=== PATIENT | female | born 1945 | race Caucasian/White ===

== ENCOUNTER 2018-05-31 10:00 | Inpatient (IN) | payer OTHER, BC ==
[2018-05-27 12:33] LABS: BASOPHILS % (AUTO) 0.3 % (0.0-2.0); EOSINOPHILS # (AUTO) 0.3 K/uL (0.0-0.4); EOSINOPHILS % (AUTO) 3.2 % (0.0-4.0); HEMOGLOBIN 13.4 g/dL (12.0-16.0); LYMPHOCYTES # (AUTO) 3.3 K/uL (1.0-5.5); LYMPHOCYTES % (AUTO) 38.6 % (20.5-51.5); MEAN CORPUSCULAR HEMOGLOBIN 30 pg (27-31); MEAN CORPUSCULAR HGB CONC 34 % (32-36); MEAN CORPUSCULAR VOLUME 89 fL (79.0-98.0); MONOCYTES # (AUTO) 0.5 K/uL (0.0-1.0); MONOCYTES % (AUTO) 5.9 % (1.7-9.3); NEUTROPHILS # (AUTO) 4.3 K/uL (1.8-7.7); PLATELET COUNT (AUTO) 240 K/uL (130-430); RED BLOOD CELL COUNT(AUTO) 4.52 MIL/uL (4.2-6.2); RED CELL DISTRIBUTION WIDTH 12.4 % (9.0-15.0); WHITE BLOOD COUNT (AUTO) 8.4 K/uL (4.8-10.8)
[2018-05-27 12:41] LABS: BILIRUBIN,URINE NEGATIVE (NEGATIVE); BLOOD, URINE NEGATIVE (NEGATIVE); CLARITY/URINE CLEAR (CLEAR); COLOR,URINE YELLOW (YELLOW); GLUCOSE,URINE NEGATIVE (NEGATIVE); KETONES,URINE NEGATIVE (NEGATIVE); LEUKOCYTE ESTERASE ,URINE 1+ (NEGATIVE); NITRITE, URINE NEGATIVE (NEGATIVE); PH,URINE 5.5 (5.0-8.0); PROTEIN URINE NEGATIVE (NEGATIVE); UROBILINOGEN,URINE 0.2 (0.2-1.0)
[2018-05-27 12:43] LABS: INR 0.9 (0.8-1.2); PROTHROMBIN TIME 9.2 SECS (9.5-12.5)
[2018-05-27 12:45] LABS: ANION GAP 9 (5-15); CALCIUM 9.3 mg/dL (8.4-11.0); CHLORIDE 104 mmol/L (98-107); CREATININE 0.88 mg/dL (0.55-1.30); GLUCOSE 134 mg/dL (70-99); POTASSIUM 3.7 mmol/L (3.5-5.1); SODIUM SERUM 139 mmol/L (136-145); UREA NITROGEN, BLOOD 24 mg/dL (8-21)
[2018-05-27 12:51] LABS: ALANINE AMINOTRANSFERASE 59 U/L (12-78); ALBUMIN 3.5 g/dL (3.4-4.8); ASPARTATE AMINOTRANSFERASE 25 U/L (10-37); TOTAL BILIRUBIN 1.4 mg/dL (0.0-1.0)
[2018-05-27 12:56] LABS: BACTERIA,URINE FEW /HPF (None Seen); MUCUS,URINE None Seen /LPF (None Seen); RBC,URINE 0-3 /HPF (0-3)
[~2018-05-31] VITALS: Ht 160 cm; Wt 84.8 kg
[2018-05-31] MEDS ORDERED: CELECOXIB 200 MG CAPSULE ONE (10:14)
[2018-05-31] MEDS ORDERED: GABAPENTIN 300 MG CAPSULE ONE (10:15)
[2018-05-31] MEDS ORDERED: ACETAMINOPHEN 500 MG TABLET ONE (10:15)
[2018-05-31] MEDS ORDERED: oxyCODONE HCL 10 MG TAB.ER.12H PO ONE ×2 (10:16→11:00)
[2018-05-31] MEDS ORDERED: TRANEXAMIC ACID 650 MG TABLET ONE (10:16)
[2018-05-31] MEDS ORDERED: POLYMYXIN 500,000/BACIT.10,000 UNITS in NS IRR 1 L IR ONE (10:26)
[2018-05-31] MEDS ORDERED: ACETAMINOPHEN 500 MG TABLET PO ONE (11:00)
[2018-05-31] MEDS ORDERED: CELECOXIB 200 MG CAPSULE PO ONE (11:00)
[2018-05-31] MEDS ORDERED: TRANEXAMIC ACID 650 MG TABLET PO ONE (11:00)
[2018-05-31] MEDS ORDERED: NACL 0.9% 1,000 ML IV ONE (11:00)
[2018-05-31] MEDS ORDERED: GABAPENTIN 300 MG CAPSULE PO ONE (11:00)
[2018-05-31] MEDS ORDERED: CEFAZOLIN 2 GM IVPB PREMIX 50 ML IV ONE (11:00)
[2018-05-31] MEDS ORDERED: MORPHINE SULFATE 10MG/10ML PF AMP EP ONE (11:45)
[2018-05-31] MEDS ORDERED: KETOROLAC TROMETHAMINE 30 MG VIAL IVP ONE (11:45)
[2018-05-31] MEDS ORDERED: LABETALOL 100 MG/ 20ML VIAL IVP ONE (11:45)
[2018-05-31] MEDS ORDERED: EPINEPHrine 1 MG/ML AMP IV ONE (11:45)
[2018-05-31] MEDS ORDERED: MIDAZOLAM HCL 5 MG/5 ML VIAL IVP ONE (11:45)
[2018-05-31] MEDS ORDERED: ROPIVACAINE 0.2% (NAROPIN) PF SOLUTION 100 ML BOTTLE EP ONE (11:45)
[2018-05-31] MEDS ORDERED: BUPIVACAINE /PF 0.75% 10 ML VIAL INJ ONE (11:45)
[2018-05-31] MEDS ORDERED: ROPIVACAINE HCL/PF 5 MG/ML 0.5% 30 ML VIAL INJ ONE (11:45)
[2018-05-31] MEDS ORDERED: LR 1,000 ML IV.SOLN IV ONE (11:45)
[2018-05-31] MEDS ORDERED: ESCI10TA PO (12:09)
[2018-05-31] MEDS ORDERED: INSU100V9 SUBCUT (12:09)
[2018-05-31] MEDS ORDERED: EZET1TAB29 PO (12:09)
[2018-05-31] MEDS ORDERED: FESO8TAB PO (12:09)
[2018-05-31] MEDS ORDERED: GLIP-172 PO (12:09)
[2018-05-31] MEDS ORDERED: LINA1TAB PO (12:09)
[2018-05-31] MEDS ORDERED: DEXL60CA3 PO (12:09)
[2018-05-31] MEDS ORDERED: VALS1TAB40 PO (12:09)
[2018-05-31] MEDS ORDERED: TOPXL100 PO (12:09)
[2018-05-31] MEDS ORDERED: ROPIVACAINE 0.2% 550 ML INJ SCH (12:52)
[2018-05-31] MEDS ORDERED: NALBUPHINE HCL 10 MG/ML AMP IVP PRN (13:00)
[2018-05-31] MEDS ORDERED: DIPHENHYDRAMINE INJ 50 MG/ML VIAL IVP PRN (13:00)
[2018-05-31] MEDS ORDERED: ONDANSETRON HCL 4 MG/2 ML VIAL IVP PRN ×3 (13:00→14:45)
[2018-05-31] MEDS ORDERED: KETOROLAC TROMETHAMINE 30 MG VIAL IVP PRN (13:00)
[2018-05-31] MEDS ORDERED: fentaNYL CITRATE/PF 100 MCG/2 ML AMP IVP PRN ×2 (13:00)
[2018-05-31] MEDS ORDERED: DIPHENHYDRAMINE HCL 25 MG CAPSULE PO PRN (14:45)
[2018-05-31] MEDS ORDERED: SENNOSIDES 8.6 MG TABLET PO PRN (14:45)
[2018-05-31] MEDS ORDERED: PROMETHAZINE HCL 25 MG/ML AMP IVP PRN (14:45)
[2018-05-31] MEDS ORDERED: KETOROLAC TROMETHAMINE 15 MG VIAL IVP PRN ×2 (14:45)
[2018-05-31] MEDS ORDERED: oxyCODONE HCL 5 MG TABLET PO PRN (14:45)
--- NOTE | 2018-05-31 15:28 | NUR ---
CONSULT MEDICAL MANAGEMNET S/P AMOS G[facility]NER [phone] S/W [facility] OFFICE
[2018-05-31 15:35] VITALS: BP_SYST 112
--- NOTE | 2018-05-31 15:38 | NUR ---
PT NOTES TIME 1530 SET CPM AT 60 DEGREES PER MD ORDER. DISCUSSED WITH RNBRO TO REMOVE AT MIDNIGHT. CYCLED CPM A FEW TIMES FOR PROPER PLACEMENT. PT HAS A GOOD UNDERSTANDING AND IS ALERT. LEFT SIDE RAIL UP FOR SAFETY. NO C/O PAIN AT THIS TIME, AND PT IS PLEASANT. BED IN LOWEST POSITION, BED ALARM ON, ALL NEEDS WITHIN REACH, AND HANDED PT OFF TO NURSING. CPSUE(1)
[2018-05-31] MEDS ORDERED: METOPROLOL SUCCINATE 50 MG TAB.SR.24H (TOPROL XL) PO ONE (15:45)
[2018-05-31] MEDS ORDERED: glipiZIDE XL 5 MG TAB ( GLUCOTROL XL) PO ONE (15:45)
[2018-05-31] MEDS ORDERED: CITALOPRAM HYDROBROMIDE 20 MG TABLET PO ONE (15:45)
[2018-05-31] MEDS ORDERED: OXYCODONE/ACETAMINOPHEN *10*mg/325 mg TABLET PO PRN (16:00)
[2018-05-31] MEDS ORDERED: EZETIMIBE/SIMVASTATIN 1 TABLET PO ONE (16:15)
[2018-05-31] MEDS: ACETAMINOPHEN 500 MG TABLET PO SCH ×2 (16:44→20:29)
[2018-05-31 16:45] VITALS: BP_SYST 116
[2018-05-31] MEDS: CEFAZOLIN 1 GM IVPB PREMIX 50 ML IV SCH ×2 (16:45→22:08)
--- NOTE | 2018-05-31 16:51 | NUR ---
rounds: patient denies pain. comfortable sitting on the bed. no distress noted. Received Report from KANDACE Cain.
--- NOTE | 2018-05-31 17:00 | NUR ---
Amrik rounds: seen by Dr. Paige and talk to the pt.
--- NOTE | 2018-05-31 17:35 | NUR ---
rounds: patient on bed resting and on CPM. family at bedside.
--- NOTE | 2018-05-31 18:32 | NUR ---
Closing notes: Patient on bed resting, watching T.V. on CPM. Stable. Needs attended. Safety measures in placed. Call light within reach. Report will be given to litigation claim representative nurse.
--- NOTE | 2018-05-31 19:30 | NUR ---
INITIAL NOTES RECEIVED HANDOFF REPORT FROM OFFGOING NURSE AT THE BEDSIDE. PATIENT IS ASLEEP, EASILY AROUSED BY VOICE. NO SOB, NO ACUTE DISTRESS, NO COMPLAINTS OF PAIN. CURRENTLY ON CPM MACHINE AND ON-Q PUMP 8ML/HR. IV SITE INTACT, CURRENTLY INFUSING FLUIDS AT THE ORDERED RATE, SEE EMAR. BED IS LOCKED, IN THE LOWEST POSITION, 2X SIDE RAILS UP, BED ALARM ON. CALL LIGHT IS WITHIN REACH, ENCOURAGED PATIENT TO CALL FOR ASSISTANCE IF NEEDED. WILL CONTINUE WITH PLAN OF CARE.
[2018-05-31 20:00] VITALS: BP_SYST 104
[2018-05-31] MEDS ORDERED: RIVAROXABAN 10 MG TABLET PO ONE (20:00)
[2018-05-31] MEDS: CELECOXIB 200 MG CAPSULE PO SCH (20:29)
[2018-05-31] MEDS: GABAPENTIN 300 MG CAPSULE PO SCH (20:29)
[2018-05-31] MEDS: OXYBUTYNIN CHLORIDE 5 MG TABLET PO SCH (20:30)
[2018-05-31] MEDS: INSULIN REGULAR, HUMAN 100 UNITS/ML, 10 ML VIAL (novoLIN R) SUBCUT PRN (20:38)
--- NOTE | 2018-05-31 22:18 | NUR ---
PATIENT IS RESTING IN BED WITH EYES CLOSED, EASILY AROUSED BY VOICE. NO SOB, NO ACUTE DISTRESS, NO COMPLAINTS OF PAIN. IV SITE INTACT, CURRENTLY INFUSING ANCEF 1GM AT 100ML/HR PER MD ORDER, SEE EMAR. ENCOURAGED PATIENT TO USE THE INCENTIVE SPIROMETER, PATIENT ABLE TO REACH 1500ML. CALL LIGHT IS WITHIN REACH, ENCOURAGED PATIENT TO CALL.
--- NOTE | 2018-06-01 00:15 | NUR ---
PATIENT REMOVED FROM CPM MACHINE. HEELS ELEVATED ON PILLOW PER MD ORDER. NO COMPLAINTS OF PAIN AT THIS TIME. LEFT EXTREMITY NEUROVASCULAR CHECK DONE AND WNL. PATIENT IS RESTING COMFORTABLY IN BED. NO SOB, NO ACUTE DISTRESS, NO COMPLAINTS OF PAIN. ENCOURAGED PATIENT TO USE THE INCENTIVE SPIROMETER, PATIENT ABLE TO REACH 2000ML. IV SITE INTACT, CURRENTLY INFUSING LR AT 100ML/HR. BED IS LOCKED, IN THE LOWEST POSITION, 2X SIDE RAILS UP, BED ALARM IS ON. CALL LIGHT IS WITHIN REACH.
[2018-06-01] MEDS: LR 1,000 ML IV SCH ×3 (00:18→20:31)
[2018-06-01 00:32] VITALS: BP_SYST 107
--- NOTE | 2018-06-01 01:42 | NUR ---
PATIENT IS SLEEPING, RESTING COMFORTABLY IN BED. NO SOB, NO ACUTE DISTRESS, NO SIGNS OF PAIN OR FACIAL GRIMACING. BREATHING IS EVEN AND UNLABORED WITH VISIBLE CHEST RISE AND FALL NOTED. CALL LIGHT IS WITHIN REACH.
--- NOTE | 2018-06-01 03:28 | NUR ---
PATIENT IS LAYING IN BED WITH HER EYES CLOSED. BREATHING IS EVEN AND UNLABORED WITH VISIBLE CHEST RISE AND FALL NOTED. BED IS LOCKED, IN THE LOWEST POSITION, 2X SIDE RAILS UP, BED ALARM ON. IV SITE INTACT, CURRENTLY INFUSING IV FLUIDS AT ORDERED RATE. HEELS ELEVATED ON PILLOWS. CALL LIGHT IS WITHIN REACH.
[2018-06-01 04:39] VITALS: BP_SYST 97
--- NOTE | 2018-06-01 05:16 | NUR ---
NOTIFIED TAMARA-DENTAL TECHNICIAN METAL REGARDING PATIENT'S LAB THAT NEEDS TO BE DRAWN AND RESULTED BY [phone]. CHARGE NURSE ALSO AWARE FOR ORTHO PATIENT CARE.
[2018-06-01] MEDS: CEFAZOLIN 1 GM IVPB PREMIX 50 ML IV SCH (06:01)
--- NOTE | 2018-06-01 06:16 | NUR ---
PATIENT IS AWAKE, RESTING COMFORTABLY IN BED. NO SOB, NO ACUTE DISTRESS, NO COMPLAINTS OF PAIN. HEEL IS ELEVATED ON PILLOWS PER MD ORDER. IV SITE INTACT, CURRENTLY INFUSING FLUIDS AT ORDERED RATE. POLAR CARE AND ON Q PUMP STILL BEING USED FOR TREATMENT FOR THIS PATIENT PER MD ORDER. BED IS LOCKED, IN THE LOWEST POSITION, 2X SIDE RAILS UP, BED ALARM IS ON. CALL LIGHT IS WITHIN REACH.
[2018-06-01 06:17] LABS: BASOPHILS % (AUTO) 0.6 % (0.0-2.0); EOSINOPHILS # (AUTO) 0.2 K/uL (0.0-0.4); EOSINOPHILS % (AUTO) 2.3 % (0.0-4.0); HEMATOCRIT 31.5 % (36-48); HEMOGLOBIN 10.7 g/dL (12.0-16.0); LYMPHOCYTES # (AUTO) 1.4 K/uL (1.0-5.5); LYMPHOCYTES % (AUTO) 19.9 % (20.5-51.5); MEAN CORPUSCULAR HEMOGLOBIN 30 pg (27-31); MEAN CORPUSCULAR HGB CONC 34 % (32-36); MEAN CORPUSCULAR VOLUME 88 fL (79.0-98.0); MONOCYTES # (AUTO) 0.6 K/uL (0.0-1.0); MONOCYTES % (AUTO) 8.8 % (1.7-9.3); NEUTROPHILS # (AUTO) 4.7 K/uL (1.8-7.7); NEUTROPHILS % (AUTO) 68.4 % (40.0-70.0); PLATELET COUNT (AUTO) 164 K/uL (130-430); RED BLOOD CELL COUNT(AUTO) 3.57 MIL/uL (4.2-6.2); RED CELL DISTRIBUTION WIDTH 12.7 % (9.0-15.0); WHITE BLOOD COUNT (AUTO) 6.9 K/uL (4.8-10.8)
[2018-06-01 06:40] LABS: ANION GAP 5 (5-15); CALCIUM 8.3 mg/dL (8.4-11.0); CHLORIDE 107 mmol/L (98-107); CREATININE 1.11 mg/dL (0.55-1.30); GLUCOSE 114 mg/dL (70-99); POTASSIUM 3.6 mmol/L (3.5-5.1); SODIUM SERUM 140 mmol/L (136-145); UREA NITROGEN, BLOOD 24 mg/dL (8-21)
--- NOTE | 2018-06-01 07:30 | NUR ---
Initial notes: Patient awake, alert and oriented. Stable. I.V. access patent. On Q pump. SCD in placed. L Foot propped up with pillow. Able to wiggle toes. No skin discoloration. Norwood cath draining well. Safety measures in placed. Call light within reach. Report received from manager shift.
--- NOTE | 2018-06-01 07:44 | NUR ---
CLOSING NOTES ENDORSEMENT OF CARE GIVEN TO BRO-KANDACE AT THE BEDSIDE. PATIENT IS AWAKE AND ALERT, RESTING COMFORTABLY IN BED. NO SOB, NO ACUTE DISTRESS, NO COMPLAINTS OF PAIN AT THIS TIME. IV SITE IS INTACT, DRESSING CLEAN AND DRY, CURRENTLY INFUSING IV FLUIDS AT ORDERED RATE, SEE EMAR. HEELS ARE ELEVATED ON PILLOWS. BED IS LOCKED, IN THE LOWEST POSITION, 2X SIDE RAILS UP, BED ALARM IS ON. CALL LIGHT IS WITHIN REACH. FALL AND SAFETY PRECAUTIONS MAINTAINED. ALL NEEDS HAVE BEEN MET DURING THIS SHIFT.
[2018-06-01 08:00] VITALS: BP_SYST 128
--- NOTE | 2018-06-01 08:15 | NUR ---
CONSULTATION PAGED REASON FOR CONSULTATION: P/O med manage WAS CONSULT CALLED? Y PERSON WHO WAS NOTIFIED: Elba CONSULTING PHYSICIAN: Dr. Witt CONSULTING PHYSICIAN'S NUMBER: [phone] ORDERING PHYSICIAN: Dr. Pagie
[2018-06-01] MEDS ORDERED: TOVIAZ 8 MG PO SCH (09:00)
[2018-06-01] MEDS: glipiZIDE XL 5 MG TAB ( GLUCOTROL XL) PO SCH (09:30)
--- NOTE | 2018-06-01 09:31 | NUR ---
Nutrition Update Tony Scale 17 noted. Pt admitted for unilateral primary osteoarthritis, L knee. Diet: CCHO, standard carb-60 gm BMI: 33.1 kg/m2 RD to follow per nutrition care standards.
[2018-06-01] MEDS: RIVAROXABAN 10 MG TABLET PO SCH (09:32)
[2018-06-01] MEDS: OXYBUTYNIN CHLORIDE 5 MG TABLET PO SCH ×3 (09:32→21:00)
[2018-06-01] MEDS: CITALOPRAM HYDROBROMIDE 20 MG TABLET PO SCH (09:32)
[2018-06-01] MEDS: CELECOXIB 200 MG CAPSULE PO SCH ×2 (09:32→21:00)
[2018-06-01] MEDS: EZETIMIBE/SIMVASTATIN 1 TABLET PO SCH (09:32)
[2018-06-01] MEDS: PANTOPRAZOLE SODIUM 40 MG TAB PO SCH (09:33)
[2018-06-01] MEDS: METOPROLOL SUCCINATE 50 MG TAB.SR.24H (TOPROL XL) PO SCH (09:34)
[2018-06-01] MEDS: ACETAMINOPHEN 500 MG TABLET PO SCH ×3 (09:46→21:00)
--- NOTE | 2018-06-01 10:20 | NUR ---
Tyler: PShelbyTShelby with the patient. Addendum: 06/01/18 at 1034 by Sara Chun RN Patient tolerated walking and able to transfer to the chair.
--- NOTE | 2018-06-01 10:34 | NUR ---
Incentive spirometer: Patient education given to use incentive spirometer. Able to do it at 1500 level. Encourage to use frequently.
--- NOTE | 2018-06-01 10:48 | NUR ---
DC planning:Pt lives at home w/ and 2 daughters that will help her. Pt wants to dc home instead of SNF, but aware depends on PT eval/progress. Requested pt to have family bring FWW so it can be adjusted for her height by our physical therapist. Has W/C w/feet at home-(husbands). Made aware of choice of vendors for home health and/or SNFs, and cm and MD will review PT notes when available to determine dc plan. Home is single story w/1 step at entrance and in garage entrance----MONA RN
--- NOTE | 2018-06-01 11:28 | NUR ---
DC planning: Discussed dc planning with Dr. Paige and Dr. Treviño. Dr. Paige mentioned [facility] evaluation and asked me to discuss w/pt. Pt desires to go home and not to [facility] or SNF. DME orders obtained and placed in chart for Dr. Paige's signature. I notified his office (Sandhya) that we need his signature on the DME orders. He will come by after noon today to sign them. Pt has no preference for home health agency- RN
--- NOTE | 2018-06-01 11:39 | NUR ---
rounds: patient sitting on the reclining chair. no distress noted.
[2018-06-01] MEDS: JENTADUETO PO SCH (12:08)
[2018-06-01] MEDS: INSULIN REGULAR, HUMAN 100 UNITS/ML, 10 ML VIAL (novoLIN R) SUBCUT PRN ×3 (12:10→21:05)
[2018-06-01] MEDS: DIOVAN HCT PO SCH (12:58)
[2018-06-01 13:05] VITALS: BP_SYST 133
--- NOTE | 2018-06-01 13:30 | NUR ---
DC planning: Faxed CPM order to [facility] at fax#[phone]--CB# [phone]--S/W Basilio--He will deliver CPM to pt's home today or tomorrow. Per Basilio, 3:1 commode not covered by Medicare. Their ochoa pay bansal is $85 for 3:1 commode. Basilio will have marketing development representative come measure pt for 3:1 commode. Also faxed 3:1 [employer] or to [facility] at fax#[phone]--CB# [phone]--to see if they also say 3:1 commode not covered. MONA RN
--- NOTE | 2018-06-01 14:32 | NUR ---
rounds: patient resting. no distress noted.
--- NOTE | 2018-06-01 14:50 | NUR ---
Discharge Planning: Pt has orders for Home Health PT; ACCOUNT MANAGER SALES REPRESENTATIVE has faxed orders and pt's information to [facility] ([phone] f.[phone]); ACCOUNT MANAGER SALES REPRESENTATIVE spoke to Bakari who states that they will start services on Wednesday if pt discharges on . ACCOUNT MANAGER SALES REPRESENTATIVE will confirm with [facility] once there is a DC home order.
--- NOTE | 2018-06-01 15:09 | NUR ---
PHYSICAL THERAPY CO-SIGN The Physical Therapy Progress Notes documented by Code Official have been reviewed. I concur with the documentation of this HEAD TELLER. Patient making some good and steady progress with PT on this first day of her therapy services. Plan: continue PT as per plan of care. Reviewed/Co-Signed by: Brandi Neumann, PT Documentation Done by: Yuri Anthony, HEAD TELLER Addendum: 06/01/18 at 1510 by rBandi Neumann PT Amended: Links added.
--- NOTE | 2018-06-01 15:43 | NUR ---
Hematuria: Observed meng cath having a blood in the urine. Informed Dr. Treviño.
--- NOTE | 2018-06-01 16:10 | NUR ---
DC planning: Rec'd message from Ana at [facility] who said 3:1 commode is a covered benefit for pt--[facility] Medical ph#[phone]. Pt made aware that [facility] said it is a covered benefit. Nurse Sara indicates pt developed hematuria this afternoon and MD Dr. Treviño made aware. RN
[2018-06-01 17:02] VITALS: BP_SYST 105
--- NOTE | 2018-06-01 17:25 | NUR ---
rounds: patient on bed with CPM. no distress noted.
--- NOTE | 2018-06-01 18:30 | NUR ---
closing notes: Patient on bed on CPM. Stable. Needs attended. Incentive spirometer at level 1500. Call light within reach. Safety measures in placed. Report will be given to cnc machinist 2nd shift.
--- NOTE | 2018-06-01 19:30 | NUR ---
Initial notes Received handoff report from offgoing nurse at the bedside. Patient is awake and alert, resting comfortably in bed. No SOB, no acute distress, no complaints of pain at this time. Polar care in place. Patient is currently in CPM machine, notified by dayshift nurse to remove CPM machine at 2100. IV site intact, currently infusing LR at KVO per MD order since the patient is tolerating a diet, see eMAR. Bed is locked, in the lowest position, 2x side rails up, bed alarm is on. Call light is within reach. Encouraged patient to call for assistance. Will continue with plan of care.
[2018-06-01 20:00] VITALS: BP_SYST 139
[2018-06-01] MEDS: GABAPENTIN 300 MG CAPSULE PO SCH (21:01)
[2018-06-01] MEDS: MORPHINE 4 MG/ML INJ. SYRINGE IVP PRN ×2 (21:14→22:56)
[2018-06-01] MEDS: oxyCODONE HCL 5 MG TABLET PO PRN (21:18)
--- NOTE | 2018-06-01 21:18 | NUR ---
Patient is complaining of pain 8/10 underneath her left knee. Provided patient with oxycodone 10mg PO prn per MD order, see eMAR for details.
--- NOTE | 2018-06-01 22:56 | NUR ---
Patient is still complaining of pain 08/17. Previous pain medication given was ineffective. Now providing morphine 3mg IVP prn per MD order, see eMAR for details.
--- NOTE | 2018-06-02 00:16 | NUR ---
Patient is asleep, resting comfortably in bed. Easily aroused by voice. Patient states her pain is a little bit better, but now the pain is 9/10. Provided Percocet 10-325 1 tablet prn per MD order, see eMAR for details.
[2018-06-02 00:28] VITALS: BP_SYST 122
--- NOTE | 2018-06-02 01:18 | NUR ---
Patient is asleep, resting in bed. Audible snoring heard. No signs of pain or facial grimacing noted at this time. On Q pump still intact, infusing med at 8ml/hr. Heel elevated on pillow.
--- NOTE | 2018-06-02 03:49 | NUR ---
Dr Alvarenga at the bedside to see the patient and inquired about pain management. Informed Dr Alvarenga that the patient had an episode of severe pain 08/17. Also informed him of the pain medications given this shift for that episode: oxycodone 10mg, morphine 3mg, and percocet 10-325 1 tab. Patient is sleeping in bed, snoring. Dr Alvarenga said that the current pain management regimen is good. Also informed Dr Alvarenga that the patient's urine is pink-tinged, and that Dr Treviño is aware, and that the patient is still on Xarelto. No new orders from Dr Alvarenga at this time. IV site currently infusing NS at KVO 1ml/hr. Dr Alvarenga does not want to wake the patient up, and stated he will be back later.
[2018-06-02] MEDS: MORPHINE 4 MG/ML INJ. SYRINGE IVP PRN (05:24)
--- NOTE | 2018-06-02 05:30 | NUR ---
Assisted patient to reposition in bed. Also provided water per patient request.
[2018-06-02] MEDS: INSULIN REGULAR, HUMAN 100 UNITS/ML, 10 ML VIAL (novoLIN R) SUBCUT PRN ×2 (06:13→12:43)
[2018-06-02] MEDS: ROPIVACAINE 0.2% 550 ML INJ SCH ×3 (06:59→11:47)
--- NOTE | 2018-06-02 07:23 | NUR ---
Closing Notes Handoff report given to offgoing nurse at the bedside. Patient is awake and alert, resting comfortably in bed. No sob, no acute distress, no complaints of pain. Bed is locked, in the lowest position, 2x side rails up, bed alarm on. Call light is within reach. Fall and safety precautions maintained. All needs have been met during this shift.
[2018-06-02] MEDS ORDERED: COMMUNICATION ORDER XX ONE (07:30)
[2018-06-02 07:32] LABS: BASOPHILS % (AUTO) 0.4 % (0.0-2.0); EOSINOPHILS # (AUTO) 0.2 K/uL (0.0-0.4); EOSINOPHILS % (AUTO) 1.8 % (0.0-4.0); HEMATOCRIT 29.2 % (36-48); HEMOGLOBIN 10.1 g/dL (12.0-16.0); LYMPHOCYTES # (AUTO) 1.6 K/uL (1.0-5.5); MEAN CORPUSCULAR HEMOGLOBIN 31 pg (27-31); MEAN CORPUSCULAR HGB CONC 35 % (32-36); MEAN CORPUSCULAR VOLUME 89 fL (79.0-98.0); MONOCYTES # (AUTO) 0.9 K/uL (0.0-1.0); MONOCYTES % (AUTO) 9.3 % (1.7-9.3); NEUTROPHILS # (AUTO) 6.6 K/uL (1.8-7.7); NEUTROPHILS % (AUTO) 71.5 % (40.0-70.0); PLATELET COUNT (AUTO) 172 K/uL (130-430); RED BLOOD CELL COUNT(AUTO) 3.28 MIL/uL (4.2-6.2); RED CELL DISTRIBUTION WIDTH 12.6 % (9.0-15.0); WHITE BLOOD COUNT (AUTO) 9.3 K/uL (4.8-10.8)
[2018-06-02 08:00] VITALS: BP_SYST 123
--- NOTE | 2018-06-02 08:00 | NUR ---
Note Pt sitting up in bed eating her breakfast. No SOB/resp distress or severe pain discomfort in left leg/foot noted. IV in right hand intact and patent at this time. Dressing on left knee CDI with polar ice on. No needs noted. Call light within reach.
[2018-06-02 08:14] LABS: ANION GAP 8 (5-15); CALCIUM 8.4 mg/dL (8.4-11.0); CHLORIDE 104 mmol/L (98-107); CREATININE 1.14 mg/dL (0.55-1.30); GLUCOSE 155 mg/dL (70-99); POTASSIUM 3.8 mmol/L (3.5-5.1); SODIUM SERUM 140 mmol/L (136-145); UREA NITROGEN, BLOOD 24 mg/dL (8-21)
[2018-06-02] MEDS: CITALOPRAM HYDROBROMIDE 20 MG TABLET PO SCH (08:41)
[2018-06-02] MEDS: glipiZIDE XL 5 MG TAB ( GLUCOTROL XL) PO SCH (08:41)
[2018-06-02] MEDS: METOPROLOL SUCCINATE 50 MG TAB.SR.24H (TOPROL XL) PO SCH (08:42)
[2018-06-02] MEDS: PANTOPRAZOLE SODIUM 40 MG TAB PO SCH (08:42)
[2018-06-02] MEDS: OXYBUTYNIN CHLORIDE 5 MG TABLET PO SCH ×2 (08:43→15:03)
[2018-06-02] MEDS: oxyCODONE HCL 5 MG TABLET PO PRN (08:43)
[2018-06-02] MEDS: ACETAMINOPHEN 500 MG TABLET PO SCH ×2 (08:44→15:03)
[2018-06-02] MEDS: EZETIMIBE/SIMVASTATIN 1 TABLET PO SCH (08:44)
[2018-06-02] MEDS: CELECOXIB 200 MG CAPSULE PO SCH (08:44)
[2018-06-02] MEDS: DIOVAN HCT PO SCH (08:46)
[2018-06-02] MEDS: RIVAROXABAN 10 MG TABLET PO SCH (09:56)
--- NOTE | 2018-06-02 11:00 | NUR ---
Note Pt working with PT at this time - ambulating in hallway and in the room with FWW. Pt then assisted into recliner at this time. IVF's were saline locked early this shift. No needs noted. Call light within reach. Pain in left knee tolerable at this time.
[2018-06-02] MEDS: JENTADUETO PO SCH (11:44)
--- NOTE | 2018-06-02 11:56 | NUR ---
Sheeter Helper TESSA contacted [facility] to inform them pt has DC order. TESSA spoke with Bakari who confirmed pt's start of care will start tomorrow (06/03/2018). Per Bakari will contact pt to provide her with time of visit. TESSA faxed pt's DC order, per request. Addendum: 06/02/18 at 1217 by Karina SMITH TESSA met with pt and pt's family at bedside to discuss HH services. TESSA provided them with HH services information. TESSA also confirmed CPM was delivered at bedside. Per pt confirmed she has a walker. Per daughter 3-1 commode has not been delivered. Addendum: 06/02/18 at 1213 by Karina Long DP DCP contacted [facility] [phone] to follow up with 3-1 commtramaine. SHAJIP spoke with Alicia who confirmed it will be delivered tomorrow (06/03/2018) to pt's home. SHAJIP informed pt's daughter, pt's nurse and pt's SUZAN Garcia.
[2018-06-02] MEDS: NORMAL SALINE 5 ML DISP.SYRIN IVF SCH ×2 (12:39→12:44)
[2018-06-02 12:54] VITALS: BP_SYST 108
--- NOTE | 2018-06-02 14:00 | NUR ---
Note Pt's daughter unable to pick pt for discharge as she has an appt 1.45pm and will be there for some time. Will come later this after noon to check on her mother for discharge home. Waiting for Dr Treviño to come in for discharge home order. Pt's tele unit was dc'd and returned to electroneurodiagnostic technician. Pt's Norwood catheter was dc'd at this time as well. Left knee dressing CDI with polar ice. Call light within reach.
--- NOTE | 2018-06-02 14:25 | NUR ---
Note Pt back in bed with left leg in CPM at 80' with polar ice on left knee. Pt's pain tolerable and pt drowsy/sleepy at this time. No needs noted. Call light within reach.
--- NOTE | 2018-06-02 14:45 | NUR ---
Note Pt was seen and assessed by Dr Treviño at this time. Orders for discharge written.
--- NOTE | 2018-06-02 14:55 | NUR ---
PHYSICAL THERAPY CO-SIGN The Physical Therapy Progress Notes documented by High Worker have been reviewed. I concur with the AM and PM documentation of this FIRE CAPTAIN. Patient continues to make good and steady progress with PT. Plan: continue as per plan of care. Reviewed/Co-Signed by: Brandi Neumann,PT Documentation Done by: Ovidio Jefferson FIRE CAPTAIN Addendum: 06/02/18 at 1457 by Brandi Neumann PT Amended: Links added.
--- NOTE | 2018-06-02 16:10 | NUR ---
Note Pt resting in bed and has left leg in CPM at 80'. Left knee dressing CDI with polar ice on knee. Neuro checks WNL on left leg at this time. Pt sates pain is tolerable at this time. Call light within reach.
[2018-06-02 17:19] VITALS: BP_SYST 117
[2018-06-02 17:25] VITALS: BP_SYST 100
--- NOTE | 2018-06-02 18:00 | NUR ---
Note Pt dressed in street clothes with assistance from her daughter. Pt and family packed all belongings. Pt checked side table and drawers for belongings. Pt's IV was dc'd - site benign. No swelling/redness/bleeding/tenderness or drainage at site noted at this time. Pt was given discharge instructions - questions/concerns were answered. No SOB/resp distress or severe left foot/knee pain/discomfort noted at this time. Pt stable. Pt was checked on q1' and PRN for needs and care all shift. Call light within reach.
--- NOTE | 2018-06-02 18:05 | NUR ---
Note Pt off the floor via wheelchair with all her belongings and discharge paperwork to private car. Pt's daughter accomapnied pt off the floor to private car.
--- NOTE | 2018-06-06 13:38 | NUR ---
Discharge Follow Up Phone Call: HOTSHOT SUPERINTENDENT called pt ([phone]) and pt's dtr, Roro, answered the phone. Pt's dtr states that pt is doing well; pt's prescriptions have been filled; there are no questions regarding discharge or medication instructions; pt received first home health visit from [facility] on 06/03/18; pt is receiving a home health visit today; pt's dtr is going to talk to the home health nurse about pt's poor appetite, rash on pt's back, and get more instruction regarding dressing changes; pt received CPM and 3:1 commode; pt checks her blood sugar as directed by PCP. Pt's dtr is going to schedule follow up appointments for pt with Dr. Paige and Dr. Treviño. HOTSHOT SUPERINTENDENT offered to schedule pt's appointments, but pt's dtr states that she will schedule the appointments. Pt's dtr did not express any other needs or concerns and denied the need for additional follow up at this time. No further follow up phone calls required at this time.
== END 2018-06-02 18:05 | disposition home health service (06) | DRG 470 ==
LOC: SMU 10:00 → STU 15:18
PROVIDERS: ADMIT Orthopaedic Surgery; ATTEND Orthopaedic Surgery
PROC: 0SRD0J9 Replacement of Left Knee Joint with Synthetic Substitute, Cemented, Open Approach (ICD-10-PCS; principal; 2018-05-31 12:00)
DX: M17.12 Unilateral primary osteoarthritis, left knee (principal); E11.9 Type 2 diabetes mellitus without complications; I10 Essential (primary) hypertension; Z96.651 Presence of right artificial knee joint; R31.9 Hematuria, unspecified; Z79.899 Other long term (current) drug therapy; E66.3 Overweight; Z68.33 Body mass index [BMI] 33.0-33.9, adult
CPT/HCPCS: 36415; 71046-TC; 80048; 80053; 81000-TC; 82962; 83036; 85025; 85610-TC; 87081; 87086; 88305; 88311; 94010; 97039; 97110-GP; 97116-GP; 97530-GP; J0171; J0690; J1815; J1885; J2250; J2270; J2274; J2795; J3490; J7120

== ENCOUNTER 2018-08-09 16:18 | Emergency (ER) | payer OTHER, BC ==
[~2018-08-09] VITALS: Ht 160 cm; Wt 80.7 kg
[~2018-08-09 16:18] MED LIST: DEXL60CA4 PO; ESCI10TA PO; EZET1TAB29 PO; FESO8TAB PO; GLIP-214 PO; INSU100V9 SUBCUT; LINA1TAB PO; TOPXL100 PO; VALS1TAB40 PO
[2018-08-09 16:26] VITALS: BP_SYST 143
--- NOTE | 2018-08-09 16:31 | NUR ---
Patient to ER bed 8 to gown for evaluation. Side rails up. Report given to Nannette JERONIMO.
--- NOTE | 2018-08-09 16:35 | NUR ---
ER Dr. Hogue at bedside examining patient.
--- NOTE | 2018-08-09 16:38 | NUR ---
Pt AAOx4 ambulated into ED c/o 08/17 posterior LLE pain x 2 days s/p PT for L knee surgery done 05/31/18. Pt has been taking advil with no relief. Slight swelling noted to calf, no erythema. No other injuries/complaints per pt/noted. Will continue to monitor.
--- NOTE | 2018-08-09 16:55 | NUR ---
EKG done at bedside
--- NOTE | 2018-08-09 16:55 | NUR ---
Urvashi jean in EDM - 08/09/18 at 1656 by COLEEN EKG done at bedside. PT tolerated well
[2018-08-09 17:10] LABS: EOSINOPHILS # (AUTO) 0.1 K/uL (0.0-0.4); MONOCYTES # (AUTO) 0.4 K/uL (0.0-1.0); NEUTROPHILS # (AUTO) 3.7 K/uL (1.8-7.7); RED CELL DISTRIBUTION WIDTH 13.4 % (9.0-15.0)
--- NOTE | 2018-08-09 17:18 | NUR ---
Pt resting comfortably in bed with no signs of distress
[2018-08-09 17:24] LABS: INR 0.9 (0.8-1.2); PROTHROMBIN TIME 9.4 SECS (9.5-12.5)
[2018-08-09 17:27] LABS: BASOPHILS % (AUTO) 0.5 % (0.0-2.0); EOSINOPHILS % (AUTO) 2.2 % (0.0-4.0); HEMATOCRIT 37.2 % (36-48); LYMPHOCYTES # (AUTO) 1.5 K/uL (1.0-5.5); LYMPHOCYTES % (AUTO) 26.8 % (20.5-51.5); MEAN CORPUSCULAR HEMOGLOBIN 28 pg (27-31); MEAN CORPUSCULAR HGB CONC 32 % (32-36); MEAN CORPUSCULAR VOLUME 86 fL (79.0-98.0); MONOCYTES % (AUTO) 7.3 % (1.7-9.3); NEUTROPHILS % (AUTO) 63.2 % (40.0-70.0); PLATELET COUNT (AUTO) 258 K/uL (130-430); RED BLOOD CELL COUNT(AUTO) 4.31 MIL/uL (4.2-6.2); WHITE BLOOD COUNT (AUTO) 5.7 K/uL (4.8-10.8)
[2018-08-09 17:30] LABS: ANION GAP 8 (5-15); CHLORIDE 106 mmol/L (98-107); CREATININE 0.97 mg/dL (0.55-1.30); GLUCOSE 75 mg/dL (70-99); POTASSIUM 3.8 mmol/L (3.5-5.1); SODIUM SERUM 140 mmol/L (136-145); UREA NITROGEN, BLOOD 14 mg/dL (8-21)
[2018-08-09 17:35] LABS: ALANINE AMINOTRANSFERASE 21 U/L (12-78); ALBUMIN 3.3 g/dL (3.4-4.8); ASPARTATE AMINOTRANSFERASE 11 U/L (10-37); TOTAL BILIRUBIN 1.4 mg/dL (0.0-1.0)
--- NOTE | 2018-08-09 18:00 | NUR ---
Patient given written and verbal discharge instructions and verbalizes understanding. ER MD Spicer discussed with patient the results and treatment provided. Patient in stable condition. ID arm band removed. Rx of Clindamycin, [place] given. Patient educated on pain management and to follow up with PMD. Pain Scale 0. Opportunity for questions provided and answered. Medication side effect fact sheet provided.
[2018-08-09 18:09] VITALS: BP_SYST 133
== END 2018-08-09 18:09 | disposition home or self-care (01) ==
LOC: SED 16:18
DX: L03.116 Cellulitis of left lower limb (principal); E11.9 Type 2 diabetes mellitus without complications; I10 Essential (primary) hypertension; Z90.49 Acquired absence of other specified parts of digestive tract; Z79.899 Other long term (current) drug therapy
CPT/HCPCS: 36415; 71045; 80053; 85025; 85379; 85610-TC; 85730-TC; 93005; 93971; 99285

== ENCOUNTER 2018-08-11 11:40 | Outpatient (CLI) | payer OTHER, BC | END 2018-08-11 21:35 | disposition home or self-care (01) | LOC: SMI 11:40 | PROVIDERS: ATTEND Orthopaedic Surgery | DX: R60.0 Localized edema (principal); Z86.2 Personal history of diseases of the blood and blood-forming organs and certain disorders involving the immune mechanism | CPT/HCPCS: 36415; 71045; 73720; 80053; 85025; 85379; 85610-TC; 85730-TC; 93005; 93971 ==

== ENCOUNTER 2018-10-22 21:37 | Inpatient (IN) | payer OTHER, BC ==
[~2018-10-22] VITALS: Ht 160 cm; Wt 82.4 kg
[2018-10-22 21:37] VITALS: BP_SYST 199
[2018-10-22] MEDS ORDERED: MULT-1164 PO (22:06)
[2018-10-22] MEDS ORDERED: CAT.1 PO (22:06)
[2018-10-22] MEDS ORDERED: LOSA50TA3 PO (22:06)
[2018-10-22] MEDS ORDERED: ASA81 PO (22:12)
[2018-10-22 22:24] LABS: BASOPHILS # (AUTO) 0.1 K/uL (0.0-0.2); BASOPHILS % (AUTO) 1.3 % (0.0-2.0); EOSINOPHILS # (AUTO) 0.2 K/uL (0.0-0.4); EOSINOPHILS % (AUTO) 4.1 % (0.0-4.0); HEMATOCRIT 39.2 % (36-48); HEMOGLOBIN 12.8 g/dL (12.0-16.0); LYMPHOCYTES # (AUTO) 1.6 K/uL (1.0-5.5); LYMPHOCYTES % (AUTO) 27.6 % (20.5-51.5); MEAN CORPUSCULAR HEMOGLOBIN 27 pg (27-31); MEAN CORPUSCULAR HGB CONC 33 % (32-36); MEAN CORPUSCULAR VOLUME 84 fL (79.0-98.0); MONOCYTES # (AUTO) 0.4 K/uL (0.0-1.0); MONOCYTES % (AUTO) 7.3 % (1.7-9.3); NEUTROPHILS # (AUTO) 3.4 K/uL (1.8-7.7); NEUTROPHILS % (AUTO) 59.7 % (40.0-70.0); PLATELET COUNT (AUTO) 277 K/uL (130-430); RED CELL DISTRIBUTION WIDTH 13.9 % (9.0-15.0); WHITE BLOOD COUNT (AUTO) 5.7 K/uL (4.8-10.8)
[2018-10-22 22:34] LABS: INR 0.9 (0.8-1.2); PROTHROMBIN TIME 9.3 SECS (9.5-12.5)
[2018-10-22 22:38] LABS: ANION GAP 11 (5-15); CALCIUM 8.7 mg/dL (8.4-11.0); CHLORIDE 104 mmol/L (98-107); CREATININE 0.79 mg/dL (0.55-1.30); GLUCOSE 131 mg/dL (70-99); POTASSIUM 3.5 mmol/L (3.5-5.1); SODIUM SERUM 142 mmol/L (136-145); UREA NITROGEN, BLOOD 14 mg/dL (8-21)
[2018-10-22 22:44] LABS: ALANINE AMINOTRANSFERASE 24 U/L (12-78); ALBUMIN 3.4 g/dL (3.4-4.8); ASPARTATE AMINOTRANSFERASE 17 U/L (10-37); TOTAL BILIRUBIN 1.3 mg/dL (0.0-1.0)
[2018-10-23] VITALS (8 sets, daily range): BP systolic 160–190
[2018-10-23] MEDS ORDERED: ASPIRIN 81 MG TAB.CHEW PO ONE (00:15)
[2018-10-23] MEDS ORDERED: INSULIN REGULAR, HUMAN 100 UNITS/ML, 10 ML VIAL (novoLIN R) SUBCUT PRN (01:30)
[2018-10-23] MEDS ORDERED: DEXTROSE 50% JECT 50 ML DISP.SYRIN IVP PRN (01:30)
[2018-10-23 02:02] LABS: BILIRUBIN,URINE NEGATIVE (NEGATIVE); BLOOD, URINE 3+ (NEGATIVE); CLARITY/URINE CLEAR (CLEAR); COLOR,URINE YELLOW (YELLOW); GLUCOSE,URINE NEGATIVE (NEGATIVE); KETONES,URINE NEGATIVE (NEGATIVE); LEUKOCYTE ESTERASE ,URINE NEGATIVE (NEGATIVE); NITRITE, URINE NEGATIVE (NEGATIVE); PROTEIN URINE TRACE (NEGATIVE); UROBILINOGEN,URINE 0.2 (0.2-1.0)
[2018-10-23 02:09] LABS: RBC,URINE 80-100 /HPF (0-3)
[2018-10-23 02:10] LABS: BACTERIA,URINE FEW /HPF (None Seen)
[2018-10-23] MEDS ORDERED: VALSARTAN 160 MG TABLET (DIOVAN) PO SCH (09:00)
[2018-10-23] MEDS ORDERED: EZETIMIBE/SIMVASTATIN 1 TABLET PO SCH (09:00)
[2018-10-23] MEDS ORDERED: cloNIDine HCL 0.1 MG TABLET PO SCH (09:00)
[2018-10-23] MEDS: CITALOPRAM HYDROBROMIDE 20 MG TABLET PO SCH (10:12)
[2018-10-23] MEDS: METOPROLOL SUCCINATE 50 MG TAB.SR.24H (TOPROL XL) PO SCH (10:12)
[2018-10-23] MEDS: ASPIRIN 81 MG TAB.CHEW PO SCH (10:12)
[2018-10-23] MEDS ORDERED: cloNIDine HCL 0.1 MG TABLET PO PRN (14:45)
[2018-10-23] MEDS: ACETAMINOPHEN 500 MG TABLET PO PRN ×2 (15:01→23:52)
[2018-10-23] MEDS: cloNIDine HCL 0.1 MG TABLET PO PRN ×2 (15:02→23:15)
[2018-10-23] MEDS: INSULIN REGULAR, HUMAN 100 UNITS/ML, 10 ML VIAL (novoLIN R) SUBCUT PRN (17:10)
[2018-10-23] MEDS: VALSARTAN 160 MG TABLET (DIOVAN) PO SCH (20:42)
[2018-10-23] MEDS ORDERED: LOSARTAN POTASSIUM 50 MG TABLET (COZAAR) PO SCH (21:00)
[2018-10-23] MEDS ORDERED: ENOXAPARIN SODIUM 40 MG/0.4 ML SYRINGE SUBCUT SCH (21:00)
[2018-10-24] VITALS (7 sets, daily range): BP systolic 139–186
[2018-10-24] MEDS: INSULIN REGULAR, HUMAN 100 UNITS/ML, 10 ML VIAL (novoLIN R) SUBCUT PRN ×2 (06:07→10:48)
[2018-10-24] MEDS: cloNIDine HCL 0.1 MG TABLET PO PRN ×3 (08:10→20:34)
[2018-10-24] MEDS: CITALOPRAM HYDROBROMIDE 20 MG TABLET PO SCH (08:11)
[2018-10-24] MEDS: VALSARTAN 160 MG TABLET (DIOVAN) PO SCH ×2 (08:11→20:36)
[2018-10-24] MEDS: ASPIRIN 81 MG TAB.CHEW PO SCH (08:11)
[2018-10-24] MEDS: METOPROLOL SUCCINATE 50 MG TAB.SR.24H (TOPROL XL) PO SCH (08:12)
[2018-10-24] MEDS ORDERED: EZETIMIBE/SIMVASTATIN 1 TABLET PO SCH (09:00)
[2018-10-24] MEDS ORDERED: REGADENOSON 0.4 MG/5 ML SYRINGE IVP ONE (09:00)
[2018-10-24] MEDS ORDERED: glipiZIDE XL 5 MG TAB ( GLUCOTROL XL) PO SCH (09:00)
[2018-10-24] MEDS ORDERED: MULTIVITS,CA,MINERALS/IRON/FA 1 TABLET PO SCH (09:00)
== END 2018-10-24 21:15 | disposition home or self-care (01) | DRG 313 ==
LOC: SED 21:37 → STU 10-23 01:18
PROVIDERS: ADMIT Family Medicine; ATTEND Family Medicine
DX: R07.89 Other chest pain (principal); I10 Essential (primary) hypertension; E11.9 Type 2 diabetes mellitus without complications; E78.5 Hyperlipidemia, unspecified; F32.9 Major depressive disorder, single episode, unspecified; F41.9 Anxiety disorder, unspecified; M17.12 Unilateral primary osteoarthritis, left knee; N32.81 Overactive bladder; Z80.8 Family history of malignant neoplasm of other organs or systems; Z82.49 Family history of ischemic heart disease and other diseases of the circulatory system; Z90.49 Acquired absence of other specified parts of digestive tract; Z96.652 Presence of left artificial knee joint; K21.9 Gastro-esophageal reflux disease without esophagitis
CPT/HCPCS: 36415; 71045; 80053; 81000-TC; 82550-TC; 82962; 83880; 84484; 85025; 85610-TC; 85730-TC; 93005; 93017; 93306; 99285; A9500; G0378; J1650; J1815; J2785

== ENCOUNTER 2018-12-05 07:13 | Inpatient (IN) | payer OTHER, BC ==
[2018-11-30 11:44] LABS: BILIRUBIN,URINE NEGATIVE (NEGATIVE); BLOOD, URINE 1+ (NEGATIVE); CLARITY/URINE CLEAR (CLEAR); COLOR,URINE YELLOW (YELLOW); GLUCOSE,URINE NEGATIVE (NEGATIVE); KETONES,URINE NEGATIVE (NEGATIVE); LEUKOCYTE ESTERASE ,URINE NEGATIVE (NEGATIVE); NITRITE, URINE NEGATIVE (NEGATIVE); PH,URINE 5.5 (5.0-8.0); PROTEIN URINE NEGATIVE (NEGATIVE); UROBILINOGEN,URINE 0.2 (0.2-1.0)
[2018-11-30 12:00] LABS: ALANINE AMINOTRANSFERASE 49 U/L (12-78); ALBUMIN 3.7 g/dL (3.4-4.8); ANION GAP 9 (5-15); ASPARTATE AMINOTRANSFERASE 29 U/L (10-37); CALCIUM 9.5 mg/dL (8.4-11.0); CHLORIDE 102 mmol/L (98-107); CREATININE 0.63 mg/dL (0.55-1.30); GLUCOSE 153 mg/dL (70-99); POTASSIUM 4.2 mmol/L (3.5-5.1); SODIUM SERUM 138 mmol/L (136-145); TOTAL BILIRUBIN 1.1 mg/dL (0.0-1.0); UREA NITROGEN, BLOOD 15 mg/dL (8-21)
[2018-11-30 12:05] LABS: INR 0.9 (0.8-1.2); PROTHROMBIN TIME 9.1 SECS (9.5-12.5)
[2018-11-30 12:09] LABS: BASOPHILS # (AUTO) 0.1 K/uL (0.0-0.2); EOSINOPHILS # (AUTO) 0.2 K/uL (0.0-0.4); EOSINOPHILS % (AUTO) 3.6 % (0.0-4.0); HEMATOCRIT 43.3 % (36-48); LYMPHOCYTES # (AUTO) 1.4 K/uL (1.0-5.5); LYMPHOCYTES % (AUTO) 26.6 % (20.5-51.5); MEAN CORPUSCULAR HEMOGLOBIN 28 pg (27-31); MEAN CORPUSCULAR HGB CONC 32 % (32-36); MEAN CORPUSCULAR VOLUME 85 fL (79.0-98.0); MONOCYTES # (AUTO) 0.4 K/uL (0.0-1.0); MONOCYTES % (AUTO) 6.9 % (1.7-9.3); NEUTROPHILS # (AUTO) 3.1 K/uL (1.8-7.7); NEUTROPHILS % (AUTO) 61.9 % (40.0-70.0); PLATELET COUNT (AUTO) 268 K/uL (130-430); RED BLOOD CELL COUNT(AUTO) 5.08 MIL/uL (4.2-6.2); RED CELL DISTRIBUTION WIDTH 13.8 % (9.0-15.0); WHITE BLOOD COUNT (AUTO) 5.2 K/uL (4.8-10.8)
[2018-11-30 12:11] LABS: BACTERIA,URINE FEW /HPF (None Seen); MUCUS,URINE None Seen /LPF (None Seen); WBC,URINE 0-3 /HPF (0-3); YEAST,URINE None Seen /HPF (None Seen)
[~2018-12-05] VITALS: Ht 160 cm; Wt 83.9 kg
[~2018-12-05 07:13] MED LIST changes: +ASA81 PO; +CAT.1 PO; +GLIP10TA11 PO; +HYDR25TA4 PO; +LINA1TAB5 PO; +LOSA50TA3 PO; +METO50TA7 PO; +MULT-1164 PO; -VALS1TAB40 PO; +VALS320T2 PO
[2018-12-05] MEDS ORDERED: POLYMYXIN 500,000/BACIT.10,000 UNITS in NS IRR 1 L IR ONE (07:23)
[2018-12-05] MEDS ORDERED: CELECOXIB 200 MG CAPSULE ONE (07:29)
[2018-12-05] MEDS ORDERED: ACETAMINOPHEN 500 MG TABLET ONE (07:29)
[2018-12-05] MEDS ORDERED: GABAPENTIN 300 MG CAPSULE ONE (07:29)
[2018-12-05] MEDS ORDERED: TRANEXAMIC ACID 650 MG TABLET ONE (07:30)
[2018-12-05] MEDS ORDERED: TRANEXAMIC ACID 650 MG TABLET PO ONE (07:30)
[2018-12-05] MEDS ORDERED: CEFAZOLIN 2 GM IVPB PREMIX 50 ML IV ONE (07:30)
[2018-12-05] MEDS ORDERED: CELECOXIB 200 MG CAPSULE PO ONE (07:30)
[2018-12-05] MEDS ORDERED: ACETAMINOPHEN 500 MG TABLET PO ONE (07:30)
[2018-12-05] MEDS ORDERED: NACL 0.9% 1,000 ML IV ONE (07:30)
[2018-12-05] MEDS ORDERED: GABAPENTIN 300 MG CAPSULE PO ONE (07:30)
[2018-12-05] MEDS ORDERED: oxyCODONE HCL 10 MG TAB.ER.12H PO ONE ×2 (07:30)
[2018-12-05] MEDS: ROPIVACAINE 0.2% 100 ML INJ SCH ×2 (08:19→20:49)
[2018-12-05] MEDS ORDERED: DIPHENHYDRAMINE INJ 50 MG/ML VIAL IVP PRN (08:30)
[2018-12-05] MEDS ORDERED: ONDANSETRON HCL 4 MG/2 ML VIAL IVP PRN ×3 (08:30→09:45)
[2018-12-05] MEDS ORDERED: NALBUPHINE HCL 10 MG/ML AMP IVP PRN (08:30)
[2018-12-05] MEDS ORDERED: OXYCODONE/ACETAMINOPHEN *10*mg/325 mg TABLET PO PRN (08:30)
[2018-12-05] MEDS ORDERED: KETOROLAC TROMETHAMINE 30 MG VIAL IVP PRN (08:30)
[2018-12-05] MEDS ORDERED: fentaNYL CITRATE/PF 100 MCG/2 ML AMP IVP PRN ×2 (08:30)
[2018-12-05] MEDS: ROPIVACAINE 0.2% 550 ML INJ SCH (09:39)
[2018-12-05] MEDS ORDERED: KETOROLAC TROMETHAMINE 15 MG VIAL IVP PRN ×2 (09:45)
[2018-12-05] MEDS ORDERED: MORPHINE 4 MG/ML INJ. SYRINGE IVP PRN (09:45)
[2018-12-05] MEDS ORDERED: PROMETHAZINE HCL 25 MG/ML AMP IVP PRN (09:45)
[2018-12-05] MEDS ORDERED: SENNOSIDES 8.6 MG TABLET PO PRN (09:45)
[2018-12-05] MEDS ORDERED: cloNIDine HCL 0.1 MG TABLET PO SCH (09:45)
[2018-12-05] MEDS ORDERED: oxyCODONE HCL 5 MG TABLET PO PRN ×2 (09:45)
[2018-12-05] MEDS ORDERED: KETOROLAC TROMETHAMINE 30 MG VIAL ONE (10:24)
[2018-12-05 11:00] VITALS: BP_SYST 111
--- NOTE | 2018-12-05 11:00 | NUR ---
ADMIT NOTE Received pt from ER to the floor with a diagnosis of TKA right. Admission process initiated. patient oriented to pain management, safety and call light-teach back done.
[2018-12-05 11:06] VITALS: BP_SYST 111
[2018-12-05] MEDS: CEFAZOLIN 1 GM IVPB PREMIX 50 ML IV SCH ×2 (11:19→17:20)
[2018-12-05] MEDS: NACL 0.9% 1,000 ML IV SCH ×2 (11:23→22:40)
--- NOTE | 2018-12-05 11:30 | NUR ---
Initial Note Patient arrived from the PACU s/p right tka by Dr. Paige. Patient is alert and oriented x q4. No complaints of pain at the moment. Right heel is elevated on pillow. Polar care is in place. Patient is able to move all the toes on the affected extremity. Rihgt pedal pulse is palpable. Instructed on how to use the IS, patient is doing up to a 1000. IV is on the LAC 18g running NS @100. Call light is within reach. Will continue to monitor.
--- NOTE | 2018-12-05 11:32 | NUR ---
Discharge Planning: DCP faxed DME orders to Dr Paige's office for doctors signature to order DME. DCP to follow up. Addendum: 12/05/18 at 1452 by Whit Natarajan DP DCP faxed pt referral to [facility] [phone]) for DME CPM, [facility] ( [phone] p [phone]) DCP to follow up Addendum: 12/05/18 at 1621 by Whit Natarajan DP [facility] p [phone]) for DME CPM -will contact patient to come out and size for CPM per Cedric.. [facility] p [phone]) Per Haleigh patient was accepted for home health.
--- NOTE | 2018-12-05 12:30 | NUR ---
RN Note Patient ambulated in the hallway with PT. Is currently sitting in a recliner chair.
--- NOTE | 2018-12-05 13:36 | NUR ---
CONSULTATION PAGED REASON FOR CONSULTATION:P/O MED MANAGEMENT WAS CONSULT CALLED?Y PERSON WHO WAS NOTIFIED:LEFT A VOICEMAIL CONSULTING PHYSICIAN:ART SEYMOUR (PETROS BONILLA IS THE PCP FOR THIS PATIENT) MANAGER FURNITURE SPECIALTY:INTERNAL MEDICINE MANAGER FURNITURE PHONE NUMBER:[phone] REQUESTING PHYSICIAN:SUSANNAH ORTEGA
--- NOTE | 2018-12-05 14:17 | NUR ---
Spoke with Spoke with Dr. Paige in the nurses station. Let MD know that the patient stated that she is allergic to Xeralto. Stated that the last time she received Xeralto she got hives on her back. MD stated to give Bendaryl prior to giving Xeralto and to report any reactions.
[2018-12-05] MEDS: ACETAMINOPHEN 500 MG TABLET PO SCH ×2 (15:19→20:25)
[2018-12-05 16:00] VITALS: BP_SYST 118
--- NOTE | 2018-12-05 16:20 | NUR ---
Rounds Patient is using IS up 1000. Right pedal pulse is palpable. CPM is in place. Patient is tolerating well.
[2018-12-05] MEDS ORDERED: RIVAROXABAN 10 MG TABLET PO ONE (17:00)
[2018-12-05] MEDS: DIPHENHYDRAMINE HCL 25 MG CAPSULE PO PRN (17:19)
--- NOTE | 2018-12-05 18:50 | NUR ---
Closing Note Patient is resting in bed. No complaints of pain at the moment. IV is on LAc 18g running NS@100. CPM is currently in place. Polar care is in place. Right pedal pulse is palpable. On Q pump is running @ 8ml/hr. Patient is using the IS up 1000. Will endorse care to the oncoming nurse.
--- NOTE | 2018-12-05 19:49 | NUR ---
PM ASSESSMENT PT. A/OX4, VITAL SIGNS STABLE, NO DISTRESS NOTED, DENIES PAIN, ENCOURAGED PT. TO USE INCENTIVE SPIROMETER 10X/HR WHILE AWAKE, PT. VERBALIZED UNDERSTANDING AND ABLE TO DEMONSTRATE PROPER USE UP TO 1700. PEDAL PULSES PRESENT BILATERALLY, PT. ABLE TO FLEX AND EXTEND FEET BILATERALLY, DENIES ANY NUMBNESS. HARDY CATH. IN PLACE DRAINING WELL TO GRAVITY, SCD IN PLACE TO LEFT LLE, CPM AND POLAR CARE IN PLACE TO RLE. ENCOURAGED TO USE CALL LIGHT FOR ASSISTANCE, PT. VERBALIZED UNDERSTANDING, BED IN LOWEST POSITION, BED ALARM ON.
[2018-12-05 19:53] VITALS: BP_SYST 118
[2018-12-05] MEDS: OXYBUTYNIN CHLORIDE 5 MG TABLET PO SCH (20:24)
[2018-12-05] MEDS: GABAPENTIN 300 MG CAPSULE PO SCH (20:25)
[2018-12-05] MEDS: CELECOXIB 200 MG CAPSULE PO SCH (20:25)
[2018-12-05] MEDS ORDERED: LOSARTAN POTASSIUM 50 MG TABLET (COZAAR) PO SCH (21:00)
--- NOTE | 2018-12-05 22:00 | NUR ---
CPM REMOVED CPM REMOVED, PILLOW PLACED UNDER RIGHT HEEL.
[2018-12-05 23:17] VITALS: BP_SYST 113
--- NOTE | 2018-12-06 | NUR ---
RN ROUNDS PT. ASLEEP, NO DISTRESS NOTED, DENIES PAIN, PILLOW IN PLACE UNDER RIGHT HEEL, CALL LIGHT WITHIN REACH, BED IN LOWEST POSITION.
--- NOTE | 2018-12-06 02:00 | NUR ---
RN ROUNDS PT. SLEEPING, NO DISTRESS NOTED, DENIES PAIN, PILLOW IN PLACE UNDER RIGHT HEEL, CALL LIGHT WITHIN REACH, BED IN LOWEST POSITION.
[2018-12-06] MEDS: CEFAZOLIN 1 GM IVPB PREMIX 50 ML IV SCH (02:48)
--- NOTE | 2018-12-06 04:00 | NUR ---
RN ROUNDS PT. SLEEPING, NO DISTRESS NOTED, DENIES PAIN, PILLOW IN PLACE UNDER RIGHT HEEL, CALL LIGHT WITHIN REACH, BED IN LOWEST POSITION.
[2018-12-06] MEDS: NACL 0.9% 1,000 ML IV SCH ×2 (05:39→15:29)
[2018-12-06] MEDS: PANTOPRAZOLE SODIUM 40 MG TAB PO SCH (06:14)
--- NOTE | 2018-12-06 06:25 | NUR ---
CLOSING NOTES PT. SITTING UP IN BED WATCHING TV, NO DISTRESS NOTED, PT. C/O MODERATE ACHING PAIN TO RIGHT KNEE, TORADOL 15MG IVP GIVEN ORDERED, POLAR CARE IN PLACE TO RLE, DRESSING IN PLACE, PILLOW IN PLACE TO RIGHT HEEL, HARDY CATHETER IN PLACE SCD AND HEEL BOOT IN PLACE TO LLE, CALL LIGHT WITHIN REACH, BED IN LOWEST POSITION.
[2018-12-06 06:42] LABS: BASOPHILS % (AUTO) 0.3 % (0.0-2.0); EOSINOPHILS # (AUTO) 0.2 K/uL (0.0-0.4); EOSINOPHILS % (AUTO) 2.9 % (0.0-4.0); HEMOGLOBIN 10.1 g/dL (12.0-16.0); LYMPHOCYTES # (AUTO) 0.9 K/uL (1.0-5.5); LYMPHOCYTES % (AUTO) 13.3 % (20.5-51.5); MEAN CORPUSCULAR HEMOGLOBIN 28 pg (27-31); MEAN CORPUSCULAR HGB CONC 33 % (32-36); MEAN CORPUSCULAR VOLUME 85 fL (79.0-98.0); MONOCYTES # (AUTO) 0.7 K/uL (0.0-1.0); MONOCYTES % (AUTO) 9.3 % (1.7-9.3); NEUTROPHILS # (AUTO) 5.2 K/uL (1.8-7.7); NEUTROPHILS % (AUTO) 74.2 % (40.0-70.0); PLATELET COUNT (AUTO) 174 K/uL (130-430); RED BLOOD CELL COUNT(AUTO) 3.63 MIL/uL (4.2-6.2); RED CELL DISTRIBUTION WIDTH 14.3 % (9.0-15.0); WHITE BLOOD COUNT (AUTO) 7.1 K/uL (4.8-10.8)
[2018-12-06 07:07] LABS: ANION GAP 11 (5-15); CALCIUM 7.8 mg/dL (8.4-11.0); CHLORIDE 101 mmol/L (98-107); CREATININE 0.92 mg/dL (0.55-1.30); GLUCOSE 136 mg/dL (70-99); POTASSIUM 3.3 mmol/L (3.5-5.1); SODIUM SERUM 136 mmol/L (136-145); UREA NITROGEN, BLOOD 18 mg/dL (8-21)
[2018-12-06] MEDS ORDERED: ROPIVACAINE HCL/PF 5 MG/ML 0.5% 30 ML VIAL EP ONE (07:45)
[2018-12-06] MEDS ORDERED: MIDAZOLAM HCL 5 MG/5 ML VIAL IVP ONE (07:45)
[2018-12-06] MEDS ORDERED: TRANEXAMIC ACID 1,000 MG/10 ML VIAL IV ONE (07:45)
[2018-12-06] MEDS ORDERED: KETOROLAC TROMETHAMINE 30 MG VIAL IVP ONE (07:45)
[2018-12-06] MEDS ORDERED: VANCOMYCIN HCL 1000 MG/VIAL IV ONE (07:45)
[2018-12-06] MEDS ORDERED: EPINEPHrine 1 MG/ML AMP IM ONE (07:45)
[2018-12-06] MEDS ORDERED: ROPIVACAINE HCL/PF 0.2% (NAROPIN) 200 ML PLAST..BAG EP ONE (07:45)
[2018-12-06] MEDS ORDERED: MORPHINE SULFATE 10MG/10ML PF AMP EP ONE (07:45)
[2018-12-06 08:00] VITALS: BP_SYST 118
[2018-12-06] MEDS ORDERED: POTASSIUM CHLORIDE 20 MEQ/PKT PACKET PO ONE (08:00)
--- NOTE | 2018-12-06 08:00 | NUR ---
Note Pt sitting up in bed eating her breakfast. Dr Paige was on the floor around 0745am assessing pt and answering questions/concerns at this time. Pt's left knee dressing CDI with polar ice on at this time. Right heel elevated on pillow. IV in left hand intact and patent infusing IVF's well. Pain tolerable at this time in right knee. Pt has Q-pump in right groin/upper thigh region. Call light within reach.
[2018-12-06] MEDS ORDERED: [UNRECOGNIZED DRUG - OTHER] PO SCH (09:00)
[2018-12-06] MEDS ORDERED: METFORMIN HCL PO SCH ×2 (09:00)
[2018-12-06] MEDS ORDERED: METOPROLOL SUCCINATE 50 MG TAB.SR.24H (TOPROL XL) PO SCH (09:00)
[2018-12-06] MEDS ORDERED: glipiZIDE XL 5 MG TAB ( GLUCOTROL XL) PO SCH (09:00)
[2018-12-06] MEDS ORDERED: LINAGLIPTIN PO SCH ×2 (09:00)
[2018-12-06] MEDS ORDERED: [UNRECOGNIZED DRUG - OTHER] PO SCH (09:00)
--- NOTE | 2018-12-06 09:06 | NUR ---
IV Re-insertion Complaining of pain to IV site. Restarted on RIGHT HAND 22G. Successful after 1 attempt. Will observe for any signs of infiltration. Informed Angelica JERONIMO.
[2018-12-06] MEDS: ROPIVACAINE 0.2% 100 ML INJ SCH ×2 (09:19→21:34)
[2018-12-06] MEDS: CELECOXIB 200 MG CAPSULE PO SCH ×2 (09:27→20:22)
[2018-12-06] MEDS: metFORMIN HCL 500 MG TABLET PO SCH (09:27)
[2018-12-06] MEDS: VALSARTAN 160 MG TABLET (DIOVAN) PO SCH (09:27)
[2018-12-06] MEDS: METOPROLOL SUCCINATE 50 MG TAB.SR.24H (TOPROL XL) PO SCH (09:28)
[2018-12-06] MEDS: MULTIVITS,CA,MINERALS/IRON/FA 1 TABLET PO SCH (09:28)
[2018-12-06] MEDS: OXYBUTYNIN CHLORIDE 5 MG TABLET PO SCH ×3 (09:29→20:22)
[2018-12-06] MEDS: CITALOPRAM HYDROBROMIDE 20 MG TABLET PO SCH (09:29)
[2018-12-06] MEDS: ACETAMINOPHEN 500 MG TABLET PO SCH ×3 (09:29→20:22)
[2018-12-06] MEDS: HYDROCHLOROTHIAZIDE 25 MG TABLET (HCTZ) PO SCH (09:29)
[2018-12-06] MEDS: DIPHENHYDRAMINE HCL 25 MG CAPSULE PO PRN (09:29)
[2018-12-06] MEDS: EZETIMIBE/SIMVASTATIN 1 TABLET PO SCH (09:29)
[2018-12-06] MEDS: RIVAROXABAN 10 MG TABLET PO SCH (09:30)
[2018-12-06] MEDS: ROPIVACAINE 0.2% 550 ML INJ SCH (09:31)
--- NOTE | 2018-12-06 09:59 | NUR ---
Nutrition Update Tony Scale 16 noted. Pt admitted for unilateral primary osteoarthritis, R knee. Diet: CCHO, soft BMI: 32.8 kg/m2 RD to follow per nutrition care standards.
--- NOTE | 2018-12-06 12:00 | NUR ---
Note Pt worked with PT on ambulation in hallway and then into recliner. Pt now assisted to bed and right leg in CPM at 70'. Pt's and daughter are now at bedside visiting pt at this time. No needs noted. Tele unit intact and attached all shift. Call light within reach.
[2018-12-06 12:28] VITALS: BP_SYST 134
--- NOTE | 2018-12-06 14:27 | NUR ---
Note Pt pulled off her tele unit, Q-pump, Norwood catheter, polar ice and CPM off. Q-pump area was cleaned off and gauze applied. Dr Paige was paged at this time to notify MD. Dr Paige called back and requested that Dr Lees be called and see if MD can come in to assess pt at this time.
--- NOTE | 2018-12-06 14:45 | NUR ---
Note Dr Lees called back and stated pt is followed by Dr Treviño. Dr Treviño was paged, waiting for call back.
--- NOTE | 2018-12-06 16:00 | NUR ---
Note Dr Treviño called back and notified that pt had pulled out Q-pump. [place] catheter, polar ice and took CPM off. Pt got OOB and ambulated with FWW to next room. After pt was cleaned and her right leg was put back into CPM. Pt did get her leg again out of CPM and ambulated to restroom - voiding on the floor all the way to the restroom. Pt was given hygiene care and transferred to room 104A for close observation. Dr Treviño stated he will come in to see pt and assess pt. No new orders given at this time. All pt's belongings were transferred to room 104A as well at this time. Call light within reach.
[2018-12-06 16:40] VITALS: BP_SYST 150
--- NOTE | 2018-12-06 18:25 | NUR ---
Note Pt sitting up in bed eating her dinner. Right leg in CPM at 70'. Pt's daughter has been at bedside for the last 1-2 hours. No SOB/resp distress or right knee/leg pain/discomfort noted at this time. Tele unit attached and intact all shift. Pt next to nurses' station for close observation. No needs noted at this time. Call light within reach.
--- NOTE | 2018-12-06 18:45 | NUR ---
Note Dr Treviño on the floor and pt's bedside at this time doing assessment.
--- NOTE | 2018-12-06 19:25 | NUR ---
Opening notes/bathroom Pt AAOx3, VSS. No s/s distress noted. R. knee dressing C/D/I. CPM removed at this time. IVF infusing L. hand 20G clear, patent. Pt assisted to the bathroom with walker. Pt denies any dizziness. Pt voided. Assisted pt back to bed. R. heel floated on pillow, neurovasc check intact. Call light within reach. Bed alarm on, siderails x3 up. Will continue to monitor.
[2018-12-06 20:00] VITALS: BP_SYST 156
--- NOTE | 2018-12-06 20:07 | NUR ---
Received MD call Dr. Alvarenga called and informed of pt's status. Informed of how pt removed Q-pump and [place] catheter during dayshift.
[2018-12-06] MEDS: GABAPENTIN 300 MG CAPSULE PO SCH (20:22)
--- NOTE | 2018-12-06 21:30 | NUR ---
Pain mgmt Pt c/o pain 04/17 R. knee after walking to bathroom. Medicated with Oxycodone 5mg PO as needed. Call light within reach. Bed low, locked, bed alarm on. Will continue to monitor.
--- NOTE | 2018-12-07 00:50 | NUR ---
IV Re-start Pt awake, states she pulled out IV tape and accidentally pulled out IV from left hand. Bleeding noted, and applied gauze and tape to stop bleeding. Re-started new IV left wrist 22G, good blood return x 1 attempt. Flushes well with NS and secured with gauze. Pt tolerated well. To monitor.
[2018-12-07 00:59] VITALS: BP_SYST 154
[2018-12-07] MEDS: NACL 0.9% 1,000 ML IV SCH ×2 (01:39→11:19)
--- NOTE | 2018-12-07 02:00 | NUR ---
Pt confused Pt getting out of bed telling her to get her food and asks "where is my daughter?". Oriented pt that she is in the hospital and it's 2 in the morning. Pt verbalized understanding. Safety measures remains in place. Bed alarm on. To monitor.
--- NOTE | 2018-12-07 05:07 | NUR ---
Rounds Pt asleep. No s/s distress noted. IV saline lock L wrist clear, patent. Safety measures in place. Bed alarm on. To monitor.
[2018-12-07] MEDS: PANTOPRAZOLE SODIUM 40 MG TAB PO SCH (06:27)
--- NOTE | 2018-12-07 06:35 | NUR ---
Closing notes Pt awake, assisted to use the commode. Pt urinated. R. knee dressing C/D/I. Pt states pain is tolerable. Assisted back to bed. R. heel floated on pillow. IV saline lock L. wrist clear, patent. Call light within reach. Polar ice on. Safety measures in place. Bed alarm on. To endorse to am nurse.
--- NOTE | 2018-12-07 06:52 | NUR ---
Dr. Alvarenga at bedside.
[2018-12-07 07:08] LABS: BASOPHILS % (AUTO) 0.2 % (0.0-2.0); EOSINOPHILS # (AUTO) 0.3 K/uL (0.0-0.4); EOSINOPHILS % (AUTO) 3.4 % (0.0-4.0); HEMATOCRIT 30.8 % (36-48); HEMOGLOBIN 10.2 g/dL (12.0-16.0); LYMPHOCYTES # (AUTO) 0.9 K/uL (1.0-5.5); LYMPHOCYTES % (AUTO) 12.3 % (20.5-51.5); MEAN CORPUSCULAR HEMOGLOBIN 28 pg (27-31); MEAN CORPUSCULAR HGB CONC 33 % (32-36); MEAN CORPUSCULAR VOLUME 84 fL (79.0-98.0); MONOCYTES # (AUTO) 0.6 K/uL (0.0-1.0); MONOCYTES % (AUTO) 8.2 % (1.7-9.3); NEUTROPHILS # (AUTO) 5.9 K/uL (1.8-7.7); NEUTROPHILS % (AUTO) 75.9 % (40.0-70.0); PLATELET COUNT (AUTO) 192 K/uL (130-430); RED BLOOD CELL COUNT(AUTO) 3.65 MIL/uL (4.2-6.2); RED CELL DISTRIBUTION WIDTH 14.8 % (9.0-15.0); WHITE BLOOD COUNT (AUTO) 7.7 K/uL (4.8-10.8)
[2018-12-07 07:20] LABS: ANION GAP 9 (5-15); CALCIUM 8.7 mg/dL (8.4-11.0); CHLORIDE 104 mmol/L (98-107); CREATININE 0.69 mg/dL (0.55-1.30); GLUCOSE 171 mg/dL (70-99); POTASSIUM 3.9 mmol/L (3.5-5.1); SODIUM SERUM 139 mmol/L (136-145); UREA NITROGEN, BLOOD 12 mg/dL (8-21)
[2018-12-07 08:00] VITALS: BP_SYST 128
--- NOTE | 2018-12-07 08:00 | NUR ---
Note Pt sitting up in bed eating her breakfast. Dr Paige was on the floor at bedside and changed pt's right knee dressing. Incision was intact with no bleeding/drainage at this time. Gauze and Kerlix wrap dressing reapplied at this time and polar ice on right knee. MD gave pt verbal discharge instructions and questions/concerns were answered at this time. IV in left hand intact and patent at this time. No needs noted. Call light within reach.
[2018-12-07] MEDS: EZETIMIBE/SIMVASTATIN 1 TABLET PO SCH (08:34)
[2018-12-07] MEDS: HYDROCHLOROTHIAZIDE 25 MG TABLET (HCTZ) PO SCH (08:34)
[2018-12-07] MEDS: OXYBUTYNIN CHLORIDE 5 MG TABLET PO SCH (08:35)
[2018-12-07] MEDS: METOPROLOL SUCCINATE 50 MG TAB.SR.24H (TOPROL XL) PO SCH (08:35)
[2018-12-07] MEDS: MULTIVITS,CA,MINERALS/IRON/FA 1 TABLET PO SCH (08:36)
[2018-12-07] MEDS: CITALOPRAM HYDROBROMIDE 20 MG TABLET PO SCH (08:36)
[2018-12-07] MEDS: metFORMIN HCL 500 MG TABLET PO SCH (08:36)
[2018-12-07] MEDS: CELECOXIB 200 MG CAPSULE PO SCH (08:37)
[2018-12-07] MEDS: ROPIVACAINE 0.2% 550 ML INJ SCH (08:37)
[2018-12-07] MEDS: ACETAMINOPHEN 500 MG TABLET PO SCH (08:37)
[2018-12-07] MEDS: VALSARTAN 160 MG TABLET (DIOVAN) PO SCH (08:37)
--- NOTE | 2018-12-07 09:45 | NUR ---
Note Dc's tele unit and returned to monitoring manager. Pt OOB with PT ambulating in hallway with FWW.
[2018-12-07] MEDS: ROPIVACAINE 0.2% 100 ML INJ SCH (10:19)
[2018-12-07 11:23] VITALS: BP_SYST 168
[2018-12-07] MEDS: RIVAROXABAN 10 MG TABLET PO SCH (11:24)
[2018-12-07 12:00] VITALS: BP_SYST 120
--- NOTE | 2018-12-07 12:00 | NUR ---
Note Pt has been using BSC to void frequently. Pt dressed in street clothes and packed all her belongings at this time. Pt checked side table and drawers for belongings. No SOB/resp distress or right knee pain/discomfort was noted at this time. No needs noted. Call light within reach
--- NOTE | 2018-12-07 13:15 | NUR ---
Note Pt's IV in left hand was dc'd - site benign. Discharge instructions given to pt and pt's daughter, questions/concerns were answered at this time. Pt has all her belongings packed and in street clothes at this time. Right knee dressing CDI and neuro in right leg/foot WNL. Pt was checked on q1' and PRN all shift for needs and care.
--- NOTE | 2018-12-07 13:25 | NUR ---
Note Pt off the floor via wheelchair with all her belongings and discharge paperwork, to private car. Pt stable.
--- NOTE | 2018-12-08 14:21 | NUR ---
Discharge Follow Up Phone Call [facility] [employer] phoned patient, , and spoke with patient's daughter, Annie, who is assisting with patient's care. Patient is doing okay but experiencing pain that is tolerable with [place]. They filled patient's prescriptions and patient is taking her medication as directed. Patient's follow up appointments have been made. [facility] home [facility] began services today and patient has taken delivery of her CPM and is using it as directed. They have no other questions or concerns.
== END 2018-12-07 13:25 | disposition home health service (06) | DRG 470 ==
LOC: SMU 07:13 → STU 09:50
PROVIDERS: ADMIT Orthopaedic Surgery; ATTEND Orthopaedic Surgery
PROC: 0SRC0J9 Replacement of Right Knee Joint with Synthetic Substitute, Cemented, Open Approach (ICD-10-PCS; principal; 2018-12-05 09:30)
DX: M17.11 Unilateral primary osteoarthritis, right knee (principal); R41.0 Disorientation, unspecified; Z96.652 Presence of left artificial knee joint; M25.761 Osteophyte, right knee; E11.9 Type 2 diabetes mellitus without complications; I10 Essential (primary) hypertension; Z88.8 Allergy status to other drugs, medicaments and biological substances
CPT/HCPCS: 36415; 71046-TC; 80048; 80053; 81000-TC; 82962; 83036; 85025; 85610-TC; 85730-TC; 87081; 88305; 88311; 94010; 97039; 97110-GP; 97116-GP; 97530-GP; C1713; C1776; G0378; J0171; J0690; J1885; J2250; J2274; J2795; J3370; J3490; J7030; J7120; Q0163